=== PATIENT | male | born 1955 | race Caucasian/White ===

== ENCOUNTER 2017-11-16 11:09 | Day surgery (SDC) | payer OTHER ==
[~2017-11-16] VITALS: Ht 188 cm; Wt 104.0 kg
[~2017-11-16 11:09] MED LIST: Aspir 8181 MG PO; CEPH500 PO; CLOT1TC TOP; HYDACE5 PO
[2017-11-16] MEDS ORDERED: TAMS.4ER (11:36)
[2017-11-16] MEDS ORDERED: STRESS B-COMPL1 EACH (11:36)
[2017-11-16] MEDS ORDERED: BREO ELLIPTA 11 EACH (11:37)
[2017-11-16] MEDS ORDERED: Omeprazole20 M1 (11:37)
[2018-09-14] MEDS ORDERED: Omeprazole20 M1 PO (12:08)
[2018-09-14] MEDS ORDERED: Aspirin EC81 MG PO (12:08)
[2018-09-14] MEDS ORDERED: BREO ELLIPTA 11 EACH INH (12:09)
[2018-09-14] MEDS ORDERED: TAMS.4ER PO (12:09)
[2018-09-14] MEDS ORDERED: Super B Comple1 EAC2 PO (12:10)
== END 2017-11-16 13:24 | disposition home or self-care (01) ==
LOC: ORSCSDS 11:09
PROVIDERS: Internal Medicine Gastroenterology
PROC: 0D758ZZ Dilation of Esophagus, Via Natural or Artificial Opening Endoscopic (ICD-10-PCS; principal; 2017-11-16 12:30)
PROC: 0DB98ZX Excision of Duodenum, Via Natural or Artificial Opening Endoscopic, Diagnostic (ICD-10-PCS; principal; 2017-11-16 12:30)
PROC: 0DB68ZX Excision of Stomach, Via Natural or Artificial Opening Endoscopic, Diagnostic (ICD-10-PCS; principal; 2017-11-16 12:30)
DX: R13.10 Dysphagia, unspecified (principal); B96.81 Helicobacter pylori [H. pylori] as the cause of diseases classified elsewhere; K22.8 Other specified diseases of esophagus; K29.80 Duodenitis without bleeding; K29.70 Gastritis, unspecified, without bleeding; K44.9 Diaphragmatic hernia without obstruction or gangrene; K21.9 Gastro-esophageal reflux disease without esophagitis; J44.9 Chronic obstructive pulmonary disease, unspecified; Z87.891 Personal history of nicotine dependence; Z79.82 Long term (current) use of aspirin; Z79.899 Other long term (current) drug therapy
CPT/HCPCS: 88305; 88342; C1726

== ENCOUNTER 2018-09-19 08:56 | Day surgery (SDC) | payer OTHER ==
[~2018-09-19] VITALS: Ht 188 cm; Wt 99.7 kg
[~2018-09-19 08:56] MED LIST changes: +Aspirin EC81 MG PO; +BREO ELLIPTA 11 EACH; +BREO ELLIPTA 11 EACH INH; +Omeprazole20 M1; +Omeprazole20 M1 PO; +STRESS B-COMPL1 EACH; +Super B Comple1 EAC2 PO; +TAMS.4ER; +TAMS.4ER PO
== END 2018-09-19 10:56 | disposition home or self-care (01) ==
LOC: ORSCSDS 08:56
PROVIDERS: Surgery
PROC: 0DBP8ZX Excision of Rectum, Via Natural or Artificial Opening Endoscopic, Diagnostic (ICD-10-PCS; principal; 2018-09-19 10:15)
DX: Z12.11 Encounter for screening for malignant neoplasm of colon (principal); K62.1 Rectal polyp; Z86.010 Personal history of colon polyps; B19.10 Unspecified viral hepatitis B without hepatic coma; Z79.82 Long term (current) use of aspirin; Z79.899 Other long term (current) drug therapy
CPT/HCPCS: 88305; J7120

== ENCOUNTER 2021-06-12 09:37 | Day surgery (SDC) | payer OTHER ==
[~2021-06-12] VITALS: Ht 188 cm; Wt 102.1 kg
[~2021-06-12 09:37] MED LIST changes: +ATOR10 PO; +ECONAZOLE NITRA30 GM TOP
--- NOTE | 2021-06-12 09:58 | NUR ---
Ambulatory in Day Surgery Surgical site prepped with 2% Chlorhexidine cloth wipe. History, Chart, Medications and Allergies reviewed before start of procedure.Lungs clear T/O to Auscultation. Patient confirms NPO status and agrees with scheduled surgery. Pre-Op teaching done. Pt verbalizes understanding. Patient States Post-Procedure ride home has been arranged. Patient reports completing Chlorhexadine shower X2 prior to admission to hospital.
--- NOTE | 2021-06-12 12:22 | NUR ---
06/12/21 1222 JOSSIEKADE PT NOTED TO HAVE SMALL ROUND AREAS TO ABDOMEN PRIOR TO PROCEDURE, SKIN INTACT, NO DRAINAGE NOTED
--- NOTE | 2021-06-12 16:30 | NUR ---
Patient up to Ambulate independently. Gait steady. Discharge instructions reviewed with patient. Patient verbalizes understanding. Copy given to patient to take home. Discharged via wheelchair to private car for ride home.
== END 2021-06-12 22:43 | disposition home or self-care (01) ==
LOC: ORSCMMR 09:37 → ORD 11:00 → ORSCMMR 11:00
PROVIDERS: Surgery
PROC: 0YU64JZ Supplement Left Inguinal Region with Synthetic Substitute, Percutaneous Endoscopic Approach (ICD-10-PCS; principal; 2021-06-12 11:00)
PROC: 8E0W4CZ Robotic Assisted Procedure of Trunk Region, Percutaneous Endoscopic Approach (ICD-10-PCS; principal; 2021-06-12 11:00)
DX: K40.30 Unilateral inguinal hernia, with obstruction, without gangrene, not specified as recurrent (principal); J44.9 Chronic obstructive pulmonary disease, unspecified; K21.9 Gastro-esophageal reflux disease without esophagitis; Z87.891 Personal history of nicotine dependence; Z79.899 Other long term (current) drug therapy
CPT/HCPCS: 49650; S2900; A9270; C1781; J0690; J1100; J2250; J2405; J2704; J2710; J3010; J7120